=== PATIENT | female | born 1955 | race Caucasian/White ===

== ENCOUNTER 2022-01-29 13:06 | Emergency (ER) | payer MEDICARE ==
[~2022-01-29] VITALS: Ht 162.6 cm; Wt 72.6 kg
[2022-01-29] MEDS ORDERED: SYNTHROID75 MCG PO (13:19)
== END 2022-01-29 15:44 | disposition home or self-care (01) ==
LOC: ED 13:06
DX: U07.1 COVID-19 (principal); E07.9 Disorder of thyroid, unspecified; Z79.899 Other long term (current) drug therapy
CPT/HCPCS: 96374; 99283-25

== ENCOUNTER 2025-02-07 12:23 | Day surgery (SDC) | payer MEDICARE, OTHER ==
[~2025-02-07] VITALS: Ht 162.6 cm; Wt 70.5 kg
[~2025-02-07 12:23] MED LIST: IBLOOD GLUCOSE TEST STRIP 1 EA TEST VI PRN; LACTATED RINGER'S 1,000 ML IV SCH; LIDOCAINE HCL 1% 5 ML SDV INJ ONE; MIDAZOLAM HCL 5 MG/5 ML VIAL IV PRN; SYNTHROID75 MCG PO; fentaNYL citrate 100 MCG/2 ML VIAL IV PRN
[2025-02-07 12:37] VITALS: BP 137/75
[2025-02-07] MEDS ORDERED: BENADRYL25 MG PO (12:43)
[2025-02-07] MEDS ORDERED: fentaNYL citrate 100 MCG/2 ML VIAL ONE (13:07)
[2025-02-07] MEDS ORDERED: MIDAZOLAM HCL 5 MG/5 ML VIAL ONE (13:08)
--- NOTE | 2025-02-07 13:59 | NUR ---
02/07/25 1359 Jennifer Weaver 1348-PT ARRIVES TO PACU VIA STRETCHER, RESTING ON LT SIDE, PT DROWSY BUT AWAKENS EASILY TO VOICE, DENIES PAIN OR NAUSEA, VSS ON 2L VIA NC, PT ENCOURAGED TO PASS GAS. 1355-PT TITRATED TO RA, VS REMAIN STABLE, AT BEDSIDE TO DISCUSS PROCEEDURE RESULTS AND PLAN OF CARE W/ PT, ALL QUESTIONS ANSWERED.
[2025-02-07 14:46] VITALS: BP 102/62
--- NOTE | 2025-02-09 13:09 | OR ---
[facility] [address], [place] [address] Signed DATE OF OPERATION: 02/07/2025 SURGEON: Mark Phoenix MD PREOPERATIVE DIAGNOSIS: Prior history of colonic polyps. POSTOPERATIVE DIAGNOSES: Small polyp, rectosigmoid, and minimal diverticular change of sigmoid. PROCEDURE: Total colonoscopy to cecum with cold morcellation polypectomy x1. ANESTHESIA: Intravenous sedation fentanyl 150 mcg and Versed 7 mg. INDICATION: This 69-year-old white woman is a patient Dr. Moni Carrasquillo and is referred for colon screening. She has no current symptoms of bleeding, diarrhea, or constipation. She does have family history of colon cancer in her maternal grandfather. She last underwent colonoscopy in [place] in 2007 where she was noted to have polyps. It was thought she may have had repeat colonoscopy in 2020, and findings are unknown to her. She is admitted at this time to undergo colonoscopy. She understands the risk of bleeding, infection, and perforation. FINDINGS: The prep was excellent. Complete colonoscopy was undertaken to cecum with full intubation of the cecum. There were few scattered diverticula of the sigmoid and a small adenomatous appearing polyp of the rectosigmoid, which was excised with cold morcellation technique. DESCRIPTION OF PROCEDURE: The patient was brought to the endoscopy suite and placed in lateral decubitus position, given intravenous sedation to the point of slurred speech and nystagmus. Digital rectal examination was normal. An Olympus video colonoscope was passed in the rectum and manipulated throughout the colon ultimately intubating the cecum itself. The ileocecal valve and appendiceal orifice were normal. The scope was withdrawn from that point. Examination throughout showed no sign of abnormality into the sigmoid where a few scattered diverticula were Electronically Signed By: MARK PHOENIX MD 02/09/25 1309 PATIENT NAME: KRYSTYNA POSEY OPERATIVE REPORT DATE OF : 51 REPORT #: [id number] PHYSICIAN: MARK PHOENIX MD PCP: MONI CARRASQUILLO MD REPORT IS CONFIDENTIAL AND NOT TO BE RELEASED WITHOUT AUTHORIZATION [facility] [address], [place] [address] Signed noted. In the rectosigmoid was a small adenomatous appearing polyp, which was excised with cold morcellation technique. Retroflexed view of the rectum was normal. Scope was removed. The patient was taken to recovery room in good condition having suffered no complication. Blood loss none. CONCLUDING DIAGNOSIS: Polyps x1 and minimal diverticula of sigmoid. PLAN: Recommend repeat colonoscopy in 7 to 10 years. Recommend high-fiber diet as well. She will return to the ongoing care of Dr. Carrasquillo. MD MAO Hyman/DEVINL /[id number] cc: Dr. Carrasquillo Copies: ~ Electronically Signed By: MARK PHOENIX MD 02/09/25 1309 PATIENT NAME: KRYSTYNA POSEY OPERATIVE REPORT DATE OF : 51 REPORT #: [id number] PHYSICIAN: MARK PHOENIX MD PCP: MONI CARRASQUILLO MD REPORT IS CONFIDENTIAL AND NOT TO BE RELEASED WITHOUT AUTHORIZATION
== END 2025-02-07 14:55 | disposition home or self-care (01) ==
LOC: DS 12:23
PROVIDERS: ATTEND Surgery
PROC: 0DBN8ZX Excision of Sigmoid Colon, Via Natural or Artificial Opening Endoscopic, Diagnostic (ICD-10-PCS; principal; 2025-02-07 13:00)
DX: Z12.11 Encounter for screening for malignant neoplasm of colon (principal); K63.5 Polyp of colon; K57.30 Diverticulosis of large intestine without perforation or abscess without bleeding; E03.9 Hypothyroidism, unspecified; Z86.0100 Personal history of colon polyps, unspecified; Z80.0 Family history of malignant neoplasm of digestive organs; Z79.890 Hormone replacement therapy
CPT/HCPCS: 88305; 99153; G0500; J2250; J3010; J7121